=== PATIENT | female | born 1985 | race Caucasian/White ===

== ENCOUNTER → 2016-08-20 | Outpatient (CLI) | payer MEDICARE, OTHER | END | disposition home or self-care (01) | LOC: MW.CHOBGYN 15:50 | PROVIDERS: ATTEND Obstetrics & Gynecology | DX: Z34.90 Encounter for supervision of normal pregnancy, unspecified, unspecified trimester (principal) | CPT/HCPCS: 81003 ==

== ENCOUNTER → 2016-09-21 | Outpatient (CLI) | payer MEDICARE, OTHER | LOC: MW.CHOBGYN 13:07 | PROVIDERS: ATTEND Obstetrics & Gynecology | DX: Z34.90 Encounter for supervision of normal pregnancy, unspecified, unspecified trimester (principal) | CPT/HCPCS: 81003; 87081 ==

== ENCOUNTER 2016-09-29 19:49 | Inpatient (IN) | payer OTHER ==
[2016-09-30] MEDS ORDERED: Misoprostol 200 MCG Tab PO PRN (00:56)
[2016-09-30] MEDS ORDERED: Sodium Chloride 0.9% 2.5 ML Syringe FLUSH PRN (00:56)
[2016-09-30] MEDS ORDERED: Sodium Chloride 0.9% 10 ML Syringe FLUSH PRN (00:56)
[2016-09-30] MEDS ORDERED: Methylergonovine 0.2 MG/1 ML Amp IM PRN (00:56)
[2016-09-30] MEDS ORDERED: Water For Irrigation,Sterile 1,000 ML Container IRR PRN (00:56)
[2016-09-30] MEDS ORDERED: Nalbuphine 10 MG/1 ML Vial IVPUSH PRN (00:56)
[2016-09-30] MEDS ORDERED: Carboprost Tromethamine 250 MCG/1 ML Amp IM PRN (00:56)
[2016-09-30] MEDS ORDERED: Butorphanol 1 MG/ML SDV IVPUSH PRN (00:56)
[2016-09-30] MEDS ORDERED: Lidocaine 1% 50 ML MDV INJECT PRN (00:56)
[2016-09-30] MEDS ORDERED: Ampicillin 2 GM in Sodium Chloride 0.9% 100 ML IV ONE (01:00)
[2016-09-30] MEDS ORDERED: Oxytocin/Lactated Ringers 30 UNIT/500 ML BAG IV SCH (01:00)
[2016-09-30] MEDS: Lactated Ringers 1,000 ML IV SCH ×3 (01:16→02:42)
--- NOTE | 2016-09-30 01:23 | PCM.LDHP ---
L&D History of Present Illness - General Date of Service: 09/30/16 Admit Problem/Dx: Patient Status Order with Admit Dx/Problem 09/29/16 20:27 Patient Status [ADT] Routine 09/30/16 00:57 Patient Status [ADT] Routine Admission Diagnosis/Problem Admission Diagnosis/Problem 09/30/16 01:18 31 yo EDC 10/21/2016 36 6/7 wks in active labor, A neg, RI, GBS pos. Source of Information: Patient History Limitations: Reports: No limitations - History of Present Illness Timing/Duration: Reports: minutes: (q4min) Location, : Reports: Abdomen Quality: Reports: Ache, Sharp Severity: severe Improves with: Reports: None Worsens with: Reports: None Associated Symptoms: Reports: N - Related Data Allergies/Adverse Reactions: Allergies Allergy/AdvReac Type Severity Reaction Status Date / Time No Known Allergies Allergy Verified 11/04/13 11:30 Social & Family History - Tobacco Use Smoking Status *Q: Never Smoker Second Hand Smoke Exposure: No - Recreational Drug Use Recreational Drug Use: No H&P Review of Systems - Review of Systems: Review Of Systems: See Below General: Reports: no symptoms HEENT: Reports: no symptoms Pulmonary: Reports: No Symptoms Cardiovascular: Reports: no symptoms Gastrointestinal: Reports: No symptoms Genitourinary: Reports: no symptoms Musculoskeletal: Reports: no symptoms Skin: Reports: no symptoms Psychiatric: Reports: no symptoms Neurological: Reports: No Symptoms Hematologic/Lymphatic: Reports: no symptoms Immunologic: Reports: no symptoms L&D Exam - Exam Exam: See Below - Vital Signs Weight: 64.864 kg - OB Specific Contraction Intensity: Moderate to Strong movement: active heart tones: present heart tones per min: 140 Heart Rate (FHR) Variability: Moderate (6-25 bmp) Presentation: Vertex Estimated Weight: 3400 - Cooper Score Cooper Score Cervix Position: Anterior Cooper Score Consistency: Soft Cooper Score Effacement: >80% Cooper Score Dilation: > 5 cm Cooper Score Infant's Station: -2 Cooper Score Total: 11 - Patient Data Lab Results last 24 hrs: Laboratory Results - last 24 hr 09/30/16 Range/Units 00:45 WBC 12.49 H (4.0-11.0) K/uL RBC 4.09 L (4.30-5.90) M/uL Hgb 12.8 (12.0-16.0) g/dL Hct 36.5 (36.0-46.0) % MCV 89.2 (80.0-98.0) fL MCH 31.3 (27.0-32.0) pg MCHC 35.1 (31.0-37.0) g/dL RDW Std Deviation 40.9 (28.0-62.0) fl RDW Coeff of Rubio 13 (11.0-15.0) % Plt Count 225 (150-400) K/uL MPV 9.20 (7.40-12.00) fL Result Diagrams: 09/30/16 00:45 - Problem List (1) Supervision of normal IUP (intrauterine ) in multigravida SNOMED Code(s): 195932232, 365587558, 878786274 ICD Code: Z34.90 - ENCNTR FOR SUPRVSN OF NORMAL , UNSP, UNSP TRIMESTER Status: Acute Priority: High Current Visit: Yes Qualifiers: Trimester: third trimester Qualified Code(s): Z34.93 - Encounter for supervision of normal , unspecified, third trimester Problem List Initiated/Reviewed/Updated: Yes Orders Last 24hrs: Active Orders 24 hr Category Date Time Status Patient Status [ADT] Routine ADT 09/29/16 20:27 Active Patient Status [ADT] Routine ADT 09/30/16 00:57 Active Heart Tones [RC] CONTINUOUS Care 09/30/16 00:57 Active Non Stress Test [RC] PER UNIT ROUTINE Care 09/29/16 20:27 Active Non Stress Test [RC] PER UNIT ROUTINE Care 09/30/16 00:57 Active May Shower [RC] ASDIRECTED Care 09/30/16 00:57 Active Notify Provider [RC] PRN Care 09/30/16 00:57 Active Up ad Bharti [RC] ASDIRECTED Care 09/29/16 20:27 Active Up ad Bharti [RC] ASDIRECTED Care 09/30/16 00:57 Active Vaginal Exam [RC] Click To Edit Care 09/29/16 20:27 Active Vaginal Exam [RC] PRN Care 09/30/16 00:57 Active Vital Signs [RC] PER UNIT ROUTINE Care 09/29/16 20:27 Active Vital Signs [RC] PER UNIT ROUTINE Care 09/30/16 00:57 Active TYPE AND SCREEN [BBK] Routine Lab 09/30/16 00:45 Received Ampicillin 1 gm Med 09/30/16 05:00 Active Sodium Chloride 0.9% [Normal Saline] 50 ml IV Q4H Ampicillin 2 gm Med 09/30/16 01:00 Active Sodium Chloride 0.9% [Normal Saline] 100 ml IV ONETIME Butorphanol [Stadol] Med 09/30/16 00:56 Active 1 mg IVPUSH Q1H PRN Carboprost Tromethamine [Hemabate DS] Med 09/30/16 00:56 Active 250 mcg IM ASDIRECTED PRN Lactated Ringers [Ringers, Lactated] 1,000 ml Med 09/30/16 01:00 Active IV ASDIRECTED Lidocaine 1% [Xylocaine 1%] Med 09/30/16 00:56 Active 50 ml INJECT .ONCE PRN Methylergonovine [Methergine] Med 09/30/16 00:56 Active 0.2 mg IM ASDIRECTED PRN Misoprostol [Cytotec] Med 09/30/16 00:56 Active 200 mcg PO .ONCE PRN Nalbuphine [Nubain] Med 09/30/16 00:56 Active 10 mg IVPUSH Q1H PRN Oxytocin/Lactated Ringers [Pitocin in LR 30 Units/500 Med 09/30/16 01:00 Active ML] 30 unit in 500 ml IV ASDIRECTED Sodium Chloride 0.9% [Saline Flush] Med 09/30/16 00:56 Active 10 ml FLUSH ASDIRECTED PRN Sodium Chloride 0.9% [Saline Flush] Med 09/30/16 00:56 Active 2.5 ml FLUSH ASDIRECTED PRN Water For Irrigation,Sterile [Sterile Water for Med 09/30/16 00:56 Active Irrigation] 1,000 ml IRR ASDIRECTED PRN Scalp Electrode [WOMSER] Per Unit Routine Oth 09/30/16 00:57 Ordered Peripheral IV Insertion Adult [OM.PC] Routine Oth 09/30/16 00:57 Ordered Resuscitation Status Routine Resus Stat 09/30/16 00:56 Ordered Medication Orders Butorphanol Tartrate (Stadol) 1 mg IVPUSH Q1H PRN PRN Reason: Pain Carboprost Tromethamine (Hemabate Ds) 250 mcg IM ASDIRECTED PRN PRN Reason: Post Hemorrhage Ampicillin Sodium 2 gm/ Sodium (Chloride) 100 mls @ 200 mls/hr IV ONETIME ONE Stop: 09/30/16 01:29 Last Admin: 09/30/16 01:17 Dose: 200 mls/hr Lactated Ringer's (Ringers, Lactated) 1,000 mls @ 150 mls/hr IV ASDIRECTED SAGAR Last Admin: 09/30/16 01:16 Dose: 150 mls/hr Oxytocin/Lactated Ringer's (Pitocin In Lr 30 Units/500 Ml) 30 unit in 500 mls @ 999 mls/hr IV ASDIRECTED SAGAR PRN Reason: 999 MUNITS/MIN Stop: 09/30/16 01:31 Ampicillin Sodium 1 gm/ Sodium (Chloride) 50 mls @ 100 mls/hr IV Q4H SAGAR Lidocaine HCl (Xylocaine 1%) 50 ml INJECT .ONCE PRN PRN Reason: Laceration repair Methylergonovine Maleate (Methergine) 0.2 mg IM ASDIRECTED PRN PRN Reason: Post Hemorrhage Misoprostol (Cytotec) 200 mcg PO .ONCE PRN PRN Reason: Post Hemorrhage Nalbuphine HCl (Nubain) 10 mg IVPUSH Q1H PRN PRN Reason: Pain (severe 7-10) Stop: 09/30/16 02:57 Sodium Chloride (Saline Flush) 10 ml FLUSH ASDIRECTED PRN PRN Reason: Keep Vein Open Sodium Chloride (Saline Flush) 2.5 ml FLUSH ASDIRECTED PRN PRN Reason: Keep Vein Open Sterile Water (Sterile Water For Irrigation) 1,000 ml IRR ASDIRECTED PRN PRN Reason: delivery Assessment/Plan Comment:: A: 31 yo EDC 10/21/2016 36 6/7 wks in active labor, A neg, RI, GBS pos. P: Admit to L&D for active labor, epidural prn, antibiotics for GBS pos. Anticipate . Dr Alcantar notified of pt status
--- NOTE | 2016-09-30 01:37 | PCM.PREANE ---
Preanesthetic Assessment - Anesthesia/Transfusion/Family Hx Anesthesia History: Prior Anesthesia Without Reaction - Review of Systems General: No Symptoms Pulmonary: No Symptoms Cardiovascular: No Symptoms Gastrointestinal: No symptoms Neurological: No Symptoms Other: Reports: None - Physical Assessment Height: 5 ft 5 in Weight: 64.864 kg ASA Class: 2 Mental Status: Alert & Oriented x3 Airway Class: Mallampati = 2 Dentition: Reports: Normal Dentition ROM/Head Extension: Full Lungs: Clear to auscultation, Normal respiratory effort Cardiovascular: Regular Rate, Regular Rhythm - Lab Values: Laboratory Last Values WBC 12.49 K/uL (4.0-11.0) H 09/30/16 00:45 RBC 4.09 M/uL (4.30-5.90) L 09/30/16 00:45 Hgb 12.8 g/dL (12.0-16.0) 09/30/16 00:45 Hct 36.5 % (36.0-46.0) 09/30/16 00:45 MCV 89.2 fL (80.0-98.0) 09/30/16 00:45 MCH 31.3 pg (27.0-32.0) 09/30/16 00:45 MCHC 35.1 g/dL (31.0-37.0) 09/30/16 00:45 RDW Std Deviation 40.9 fl (28.0-62.0) 09/30/16 00:45 RDW Coeff of Rubio 13 % (11.0-15.0) 09/30/16 00:45 Plt Count 225 K/uL (150-400) 09/30/16 00:45 MPV 9.20 fL (7.40-12.00) 09/30/16 00:45 - Allergies Allergies/Adverse Reactions: Allergies Allergy/AdvReac Type Severity Reaction Status Date / Time No Known Allergies Allergy Verified 11/04/13 11:30 - Acknowledgements Anesthesia Type Planned: Epidural Pt an Appropriate Candidate for the Planned Anesthesia: Yes Alternatives and Risks of Anesthesia Discussed w Pt/Guardian: Yes Pt/Guardian Understands and Agrees with Anesthesia Plan: Yes PreAnesthesia Questionnaire HEENT History: Reports: None Cardiovascular History: Reports: None Respiratory History: Reports: None Gastrointestinal History: Reports: GERD Genitourinary History: Reports: UTI, recurrent [employer]TING [employer]ATOR History: Reports: : 2 Para: 1 LMP (Approximate): Musculoskeletal History: Reports: None Neurological History: Reports: None Psychiatric History: Reports: Anxiety, Depression Endocrine/Metabolic History: Reports: None Hematologic History: Reports: None Immunologic History: Reports: None Oncologic (Cancer) History: Reports: None Dermatologic History: Reports: None - Infectious Disease History Infectious Disease History: Reports: None - SUBSTANCE USE Smoking Status *Q: Never Smoker Second Hand Smoke Exposure: No Recreational Drug Use History: No - CURRENT (IN HOUSE) MEDS Current Meds: Current Medications Butorphanol Tartrate (Stadol) 1 mg IVPUSH Q1H PRN PRN Reason: Pain Carboprost Tromethamine (Hemabate Ds) 250 mcg IM ASDIRECTED PRN PRN Reason: Post Hemorrhage Lactated Ringer's (Ringers, Lactated) 1,000 mls @ 150 mls/hr IV ASDIRECTED SAGAR Last Infusion: 09/30/16 01:27 Dose: 999 mls/hr Ampicillin Sodium 1 gm/ Sodium (Chloride) 50 mls @ 100 mls/hr IV Q4H SAGAR Lidocaine HCl (Xylocaine 1%) 50 ml INJECT .ONCE PRN PRN Reason: Laceration repair Methylergonovine Maleate (Methergine) 0.2 mg IM ASDIRECTED PRN PRN Reason: Post Hemorrhage Misoprostol (Cytotec) 200 mcg PO .ONCE PRN PRN Reason: Post Hemorrhage Nalbuphine HCl (Nubain) 10 mg IVPUSH Q1H PRN PRN Reason: Pain (severe 7-10) Stop: 09/30/16 02:57 Sodium Chloride (Saline Flush) 10 ml FLUSH ASDIRECTED PRN PRN Reason: Keep Vein Open Sodium Chloride (Saline Flush) 2.5 ml FLUSH ASDIRECTED PRN PRN Reason: Keep Vein Open Sterile Water (Sterile Water For Irrigation) 1,000 ml IRR ASDIRECTED PRN PRN Reason: delivery Discontinued Medications Ampicillin Sodium 2 gm/ Sodium (Chloride) 100 mls @ 200 mls/hr IV ONETIME ONE Stop: 09/30/16 01:29 Last Admin: 09/30/16 01:17 Dose: 200 mls/hr Oxytocin/Lactated Ringer's (Pitocin In Lr 30 Units/500 Ml) 30 unit in 500 mls @ 999 mls/hr IV ASDIRECTED SAGAR PRN Reason: 999 MUNITS/MIN Stop: 09/30/16 01:31
[2016-09-30] MEDS ORDERED: fentaNYL 100 MCG/2 ML SDV ONE (01:52)
[2016-09-30] MEDS ORDERED: Ropivacaine HCl/PF 100 ML ONE (01:52)
[2016-09-30] MEDS ORDERED: Oxytocin/Lactated Ringers 30 UNIT/500 ML BAG ONE (04:29)
[2016-09-30] MEDS ORDERED: Ampicillin 1 GM in Sodium Chloride 0.9% 50 ML IV SCH (05:00)
[2016-09-30] MEDS ORDERED: Lanolin 100% Cream 7 GM Tube TOP PRN (05:45)
[2016-09-30] MEDS ORDERED: Bisacodyl 10 MG Supp RECTAL PRN (05:45)
[2016-09-30] MEDS ORDERED: oxyCODONE 5 MG Tab PO PRN (05:45)
[2016-09-30] MEDS ORDERED: Ibuprofen 400 MG Tab PO PRN (05:45)
[2016-09-30] MEDS ORDERED: Ibuprofen 800 MG Tab PO PRN (05:45)
[2016-09-30] MEDS ORDERED: Benzocaine/Menthol 20%-0.5% Spray 78 GM Cannister TOP PRN (05:45)
[2016-09-30] MEDS ORDERED: Witch Hazel Medicated Pads 40/Jar TOP PRN (05:45)
[2016-09-30] MEDS ORDERED: Acetaminophen 500 MG Tab PO PRN ×2 (05:45)
--- NOTE | 2016-09-30 06:01 | PCM.DEL ---
L & D Note - General Info Date of Service: 09/30/16 Mother's Due Date: 10/21/16 - Delivery Note Labor: spontaneous Delivery Outcome: Livebirth Infant Delivery Method: Spontaneous Vaginal Delivery Infant Delivery Mode: Spontaneous Presentation: Vertex Nuchal cord: none Anesthesia Type: Epidural Anesthetic: lidocaine (xylocaine) 1% plain Local anesthetic volume: 1cc Amniotic Fluid Description: Clear Episiotomy Type: None Laceration: 2nd degree Suture size: 3-0 Placenta: intact, spontaneous Cord: 3 vessels Estimated blood loss: 150 Resuscitation needed: No [place]: warmed Score 1 min: 9 Score 5 min: 9 Second Stage Interventions: Reports: Laboring Down Delivery Comments (Free Text/Narrative):: of viable female over intact perineum. Head delivered with effective pushing, shoulders and body followed easily. to mothers abdomen with RN at for evaluation. Delayed cord clamping. Pitocin to IVF. Cord clamped and cut by FOB. Cord blood collected. Placenta delivered grossly intact. Inspection noted 2nd degree lac Lidocaine 1% used, and then lac was repaired with a 3-0 idalia in the usual manor. Bimanual WNL. EBL 150cc, APGARS 9/9, Wt: pending bonding. Mother and baby left in stable condition for recovery. - General Info Date of Service: 09/30/16 Admission Dx/Problem (Free Text): Patient Status Order with Admit Dx/Problem 09/29/16 20:27 Patient Status [ADT] Routine 09/30/16 00:57 Patient Status [ADT] Routine Admission Diagnosis/Problem Admission Diagnosis/Problem 09/30/16 01:18 31 yo EDC 10/21/2016 36 6/7 wks in active labor, A neg, RI, GBS pos. Functional Status: Reports: pain controlled - Review of Systems General: Reports: No Symptoms HEENT: Reports: no symptoms Pulmonary: Reports: no symptoms Cardiovascular: Reports: No Symptoms Gastrointestinal: Reports: No symptoms Genitourinary: Reports: no symptoms Musculoskeletal: Reports: no symptoms Skin: Reports: no symptoms Neurological: Reports: No Symptoms Psychiatric: Reports: no symptoms - Patient Data Weight - most recent: 64.864 kg Lab Results last 24 hrs: Laboratory Results - last 24 hr 09/30/16 09/30/16 Range/Units 00:45 00:45 WBC 12.49 H (4.0-11.0) K/uL RBC 4.09 L (4.30-5.90) M/uL Hgb 12.8 (12.0-16.0) g/dL Hct 36.5 (36.0-46.0) % MCV 89.2 (80.0-98.0) fL MCH 31.3 (27.0-32.0) pg MCHC 35.1 (31.0-37.0) g/dL RDW Std Deviation 40.9 (28.0-62.0) fl RDW Coeff of Rubio 13 (11.0-15.0) % Plt Count 225 (150-400) K/uL MPV 9.20 (7.40-12.00) fL Blood Type A NEGATIVE Antibody Screen NEGATIVE Med Orders - Current: Current Medications Acetaminophen (Tylenol Extra Strength) 500 mg PO Q4H PRN PRN Reason: Pain Acetaminophen (Tylenol Extra Strength) 1,000 mg PO Q4H PRN PRN Reason: Pain Benzocaine/Menthol (Dermoplast Pain Relief 20%-0.5% [place]) 78 gm TOP ASDIRECTED PRN PRN Reason: Perineal Comfort Measure Bisacodyl (Dulcolax) 10 mg RECTAL .ONCE PRN PRN Reason: Constipation Docusate Sodium (Colace) 100 mg PO BID PRN PRN Reason: Constipation Emollient Ointment (Lansinoh Hpa) 0 gm TOP ASDIRECTED PRN PRN Reason: Sore Nipples Ibuprofen (Motrin) 400 mg PO Q4H PRN PRN Reason: Pain Ibuprofen (Motrin) 800 mg PO Q6H PRN PRN Reason: Pain Oxycodone HCl (Oxycodone) 5 mg PO Q2H PRN PRN Reason: Pain Witch Kanchan (Tucks) 1 pad TOP ASDIRECTED PRN PRN Reason: comfort care Discontinued Medications Butorphanol Tartrate (Stadol) 1 mg IVPUSH Q1H PRN PRN Reason: Pain Carboprost Tromethamine (Hemabate Ds) 250 mcg IM ASDIRECTED PRN PRN Reason: Post Hemorrhage Fentanyl (Sublimaze) Confirm Administered Dose 100 mcg .ROUTE .STK-MED ONE Stop: 09/30/16 01:53 Ampicillin Sodium 2 gm/ Sodium (Chloride) 100 mls @ 200 mls/hr IV ONETIME ONE Stop: 09/30/16 01:29 Last Admin: 09/30/16 01:17 Dose: 200 mls/hr Lactated Ringer's (Ringers, Lactated) 1,000 mls @ 150 mls/hr IV ASDIRECTED [facility] Last Admin: 09/30/16 02:42 Dose: 150 mls/hr Oxytocin/Lactated Ringer's (Pitocin In Lr 30 Units/500 Ml) 30 unit in 500 mls @ 999 mls/hr IV ASDIRECTED [facility] PRN Reason: 999 MUNITS/MIN Stop: 09/30/16 01:31 Last Admin: 09/30/16 05:22 Dose: 999 munits/min, 999 mls/hr Ampicillin Sodium 1 gm/ Sodium (Chloride) 50 mls @ 100 mls/hr IV Q4H [facility] Ropivacaine (Naropin 0.2%) Confirm Administered Dose 100 mls @ as directed .ROUTE .STK-MED ONE Stop: 09/30/16 01:53 Oxytocin/Lactated Ringer's (Pitocin In Lr 30 Units/500 Ml) Confirm Administered Dose 30 unit in 500 mls @ as directed .ROUTE .STK-MED ONE Stop: 09/30/16 04:30 Lidocaine HCl (Xylocaine 1%) 50 ml INJECT .ONCE PRN PRN Reason: Laceration repair Last Admin: 09/30/16 05:36 Dose: 50 ml Methylergonovine Maleate (Methergine) 0.2 mg IM ASDIRECTED PRN PRN Reason: Post Hemorrhage Misoprostol (Cytotec) 200 mcg PO .ONCE PRN PRN Reason: Post Hemorrhage Nalbuphine HCl (Nubain) 10 mg IVPUSH Q1H PRN PRN Reason: Pain (severe 7-10) Stop: 09/30/16 02:57 Sodium Chloride (Saline Flush) 10 ml FLUSH ASDIRECTED PRN PRN Reason: Keep Vein Open Last Admin: 09/30/16 05:37 Dose: 10 ml Sodium Chloride (Saline Flush) 2.5 ml FLUSH ASDIRECTED PRN PRN Reason: Keep Vein Open Sterile Water (Sterile Water For Irrigation) 1,000 ml IRR ASDIRECTED PRN PRN Reason: delivery - Exam General: alert, oriented, cooperative, no acute distress Lungs: Normal respiratory effort Abdomen: soft, no tenderness, no distension (Female) Exam: Normal bimanual exam, Vaginal bleeding Back Exam: full range of motion Extremities: no edema Skin: warm, dry, intact Wound/Incisions: healing well Neurological: no new focal deficit Psy/Mental Status: alert, normal affect, normal mood - Problem List & Annotations (1) Supervision of normal IUP (intrauterine ) in multigravida SNOMED Code(s): 359606103, 752479835, 798605397 Code(s): Z34.90 - ENCNTR FOR SUPRVSN OF NORMAL , UNSP, UNSP TRIMESTER Status: Acute Priority: High Current Visit: Yes Qualifiers: Trimester: third trimester Qualified Code(s): Z34.93 - Encounter for supervision of normal , unspecified, third trimester (2) (normal spontaneous vaginal delivery) SNOMED Code(s): 43749381 Code(s): O80 - ENCOUNTER FOR FULL-TERM UNCOMPLICATED DELIVERY Status: Acute Priority: Medium Current Visit: Yes - Problem List Review Problem List Initiated/Reviewed/Updated: Yes - My Orders Last 24 Hours: My Active Orders 09/30/16 05:45 May Shower [RC] ASDIRECTED Up ad Bharti [RC] ASDIRECTED Vital Signs [RC] PER UNIT ROUTINE Acetaminophen [Tylenol Extra Strength] 1,000 mg PO Q4H PRN Acetaminophen [Tylenol Extra Strength] 500 mg PO Q4H PRN Benzocaine/Menthol [Dermoplast Pain Relief 20%-0.5% [place]] 78 gm TOP ASDIRECTED PRN Bisacodyl [Dulcolax] 10 mg RECTAL .ONCE PRN Docusate Sodium [Colace] 100 mg PO BID PRN Ibuprofen [Motrin] 400 mg PO Q4H PRN Ibuprofen [Motrin] 800 mg PO Q6H PRN Lanolin [Lansinoh HPA] See Dose Instructions TOP ASDIRECTED PRN Witch Kanchan [Tucks] 1 pad TOP ASDIRECTED PRN oxyCODONE 5 mg PO Q2H PRN Assess Lochia [WOMSER] Per Unit Routine Assess Uterine Involution [WOMSER] Per Unit Routine Peripheral IV Discontinue [OM.PC] Routine Resuscitation Status Routine 09/30/16 05:46 Patient Status [ADT] Routine 09/30/16 Breakfast Regular Diet [DIET] - Assessment Assessment:: A: of viable female, 2nd degree lac with repair. EBL 150cc, APGARS /9. Wt : pending P: Routine post plan of care. - Plan Plan:: A: 31 yo EDC 10/21/2016 36 6/7 wks in active labor, A neg, RI, GBS pos. P: Admit to L&D for active labor, epidural prn, antibiotics for GBS pos. Anticipate . Dr Alcantar notified of pt status
--- NOTE | 2016-09-30 09:10 | PCM48HPAN ---
Post Anesthesia Note - EVALUATION WITHIN 48HRS OF ANESTHETIC Vital Signs in Normal Range: Yes Patient Participated in Evaluation: Yes Respiratory Function Stable: Yes Airway Patent: Yes Cardiovascular Function Stable: Yes Hydration Status Stable: Yes Pain Control Satisfactory: Yes Nausea and Vomiting Control Satisfactory: Yes Mental Status Recovered: Yes
[2016-09-30] MEDS: Docusate Sodium 100 MG Cap PO PRN ×2 (12:09→21:33)
[2016-09-30] MEDS ORDERED: Rho(D) Immune Globulin 300 MCG/2 ML Syringe IM ONE (18:21)
[2016-10-01 08:40] VITALS: BP 118/77
--- NOTE | 2016-10-01 09:46 | PCM.DCSUM1 ---
Discharge Summary - Hospital Course Free Text/Narrative:: Discharge home with . Follow up 6 weeks or sooner if needed - Discharge Data Discharge Date: 10/01/16 Discharge Disposition: Home, Self-Care 01 Condition: Good - Discharge Diagnosis/Problem(s) (1) Supervision of normal IUP (intrauterine ) in multigravida SNOMED Code(s): 798446363, 724200797, 993678235 ICD Code: Z34.90 - ENCNTR FOR SUPRVSN OF NORMAL , UNSP, UNSP TRIMESTER Status: Acute Priority: High Current Visit: Yes Qualifiers: Trimester: third trimester Qualified Code(s): Z34.93 - Encounter for supervision of normal , unspecified, third trimester (2) (normal spontaneous vaginal delivery) SNOMED Code(s): 85831659 ICD Code: O80 - ENCOUNTER FOR FULL-TERM UNCOMPLICATED DELIVERY Status: Acute Priority: Medium Current Visit: Yes - Patient Instructions Diet: Usual Diet as Tolerated Activity: As Tolerated, Rest and Relax Today Driving: Do Not Drive Showering/Bathing: May Shower Notify Provider of: Fever, Increased Pain, Swelling and Redness, Nausea and/or Vomiting - Discharge Plan Referrals: [facility] [Outside] Fredy Alcantar MD [Physician] - 11/12/16 9:30 am - General Info Date of Service: 10/01/16 Admission Dx/Problem (Free Text: Patient Status Order with Admit Dx/Problem 09/29/16 20:27 Patient Status [ADT] Routine 09/30/16 00:57 Patient Status [ADT] Routine Admission Diagnosis/Problem Admission Diagnosis/Problem 09/30/16 01:18 31 yo EDC 10/21/2016 36 6/7 wks in active labor, A neg, RI, GBS pos. Functional Status: Reports: pain controlled, tolerating diet, ambulating, urinating - Review of Systems General: Reports: No Symptoms HEENT: Reports: no symptoms Pulmonary: Reports: no symptoms Cardiovascular: Reports: No Symptoms Gastrointestinal: Reports: No symptoms Genitourinary: Reports: no symptoms Musculoskeletal: Reports: no symptoms Skin: Reports: no symptoms Neurological: Reports: No Symptoms Psychiatric: Reports: no symptoms - Patient Data Vitals - Most Recent: Last Vital Signs Temp 36.4 C 10/01/16 08:38 Pulse 75 10/01/16 08:38 Resp 18 10/01/16 05:38 BP 118/77 10/01/16 08:38 Pulse Ox 98 10/01/16 08:38 Weight - Most Recent: 64.864 kg I&O - Last 24 hours: Intake & Output 09/30/16 10/01/16 10/01/16 22:59 06:59 14:59 Intake Total 2 Balance 2 Lab Results - Last 24 hrs: Laboratory Results - last 24 hr 09/30/16 Range/Units 06:50 Screen NEGATIVE RhIG Candidate? YES Rhogam Indicated Cancelled Med Orders - Current: Current Medications Acetaminophen (Tylenol Extra Strength) 500 mg PO Q4H PRN PRN Reason: Pain Acetaminophen (Tylenol Extra Strength) 1,000 mg PO Q4H PRN PRN Reason: Pain Last Admin: 09/30/16 12:01 Dose: 1,000 mg Benzocaine/Menthol (Dermoplast Pain Relief 20%-0.5% Rover) 78 gm TOP ASDIRECTED PRN PRN Reason: Perineal Comfort Measure Last Admin: 09/30/16 08:45 Dose: 1 can Bisacodyl (Dulcolax) 10 mg RECTAL .ONCE PRN PRN Reason: Constipation Docusate Sodium (Colace) 100 mg PO BID PRN PRN Reason: Constipation Last Admin: 09/30/16 21:33 Dose: 100 mg Emollient Ointment (Lansinoh Hpa) 0 gm TOP ASDIRECTED PRN PRN Reason: Sore Nipples Last Admin: 09/30/16 08:44 Dose: 1 tube Ibuprofen (Motrin) 400 mg PO Q4H PRN PRN Reason: Pain Ibuprofen (Motrin) 800 mg PO Q6H PRN PRN Reason: Pain Last Admin: 09/30/16 08:44 Dose: 800 mg Oxycodone HCl (Oxycodone) 5 mg PO Q2H PRN PRN Reason: Pain Witch Kanchan (Tucks) 1 pad TOP ASDIRECTED PRN PRN Reason: comfort care Last Admin: 09/30/16 08:44 Dose: 1 tub Discontinued Medications Butorphanol Tartrate (Stadol) 1 mg IVPUSH Q1H PRN PRN Reason: Pain Carboprost Tromethamine (Hemabate Ds) 250 mcg IM ASDIRECTED PRN PRN Reason: Post Hemorrhage Fentanyl (Sublimaze) Confirm Administered Dose 100 mcg .ROUTE .STK-MED ONE Stop: 09/30/16 01:53 Ampicillin Sodium 2 gm/ Sodium (Chloride) 100 mls @ 200 mls/hr IV ONETIME ONE Stop: 09/30/16 01:29 Last Admin: 09/30/16 01:17 Dose: 200 mls/hr Lactated Ringer's (Ringers, Lactated) 1,000 mls @ 150 mls/hr IV ASDIRECTED SAGAR Last Admin: 09/30/16 02:42 Dose: 150 mls/hr Oxytocin/Lactated Ringer's (Pitocin In Lr 30 Units/500 Ml) 30 unit in 500 mls @ 999 mls/hr IV ASDIRECTED SAGAR PRN Reason: 999 MUNITS/MIN Stop: 09/30/16 01:31 Last Admin: 09/30/16 05:22 Dose: 999 munits/min, 999 mls/hr Ampicillin Sodium 1 gm/ Sodium (Chloride) 50 mls @ 100 mls/hr IV Q4H [facility] Ropivacaine (Naropin 0.2%) Confirm Administered Dose 100 mls @ as directed .ROUTE .STK-MED ONE Stop: 09/30/16 01:53 Oxytocin/Lactated Ringer's (Pitocin In Lr 30 Units/500 Ml) Confirm Administered Dose 30 unit in 500 mls @ as directed .ROUTE .STK-MED ONE Stop: 09/30/16 04:30 Lidocaine HCl (Xylocaine 1%) 50 ml INJECT .ONCE PRN PRN Reason: Laceration repair Last Admin: 09/30/16 05:36 Dose: 50 ml Methylergonovine Maleate (Methergine) 0.2 mg IM ASDIRECTED PRN PRN Reason: Post Hemorrhage Misoprostol (Cytotec) 200 mcg PO .ONCE PRN PRN Reason: Post Hemorrhage Nalbuphine HCl (Nubain) 10 mg IVPUSH Q1H PRN PRN Reason: Pain (severe 7-10) Stop: 09/30/16 02:57 Rho Immune Globulin (Rhophylac) 300 mcg IM ONETIME ONE Stop: 09/30/16 18:22 Sodium Chloride (Saline Flush) 10 ml FLUSH ASDIRECTED PRN PRN Reason: Keep Vein Open Last Admin: 09/30/16 05:37 Dose: 10 ml Sodium Chloride (Saline Flush) 2.5 ml FLUSH ASDIRECTED PRN PRN Reason: Keep Vein Open Sterile Water (Sterile Water For Irrigation) 1,000 ml IRR ASDIRECTED PRN PRN Reason: delivery - Exam General: Reports: alert, oriented, cooperative, no acute distress Lungs: Reports: Normal respiratory effort Abdomen: Reports: soft, no tenderness, no distension Rectal (Female) Exam: Deferred Back Exam: Reports: normal inspection Extremities: Reports: no edema, normal pulses Skin: Reports: warm, dry, intact Wound/Incisions: Reports: healing well Neurological: Reports: no new focal deficit Psy/Mental Status: Reports: alert, normal affect, normal mood *Q Meaningful Use (DIS) - VTE *Q VTE Criteria *Q: - Stroke *Q Stroke Criteria *Q: - AMI *Q AMI Criteria *Q:
== END 2016-10-01 11:15 | disposition home or self-care (01) | DRG 775 ==
LOC: MW.OBCHECK 19:49 → MW.OB 19:51 → MW.OBCHECK 19:59 → OBSVTOIN 09-30 05:46 → MW.OB 09-30 09:07
PROVIDERS: ADMIT Obstetrics & Gynecology; ATTEND Obstetrics & Gynecology
PROC: 10E0XZZ Delivery of Products of Conception, External Approach (ICD-10-PCS; principal; 2016-09-30)
PROC: 0KQM0ZZ Repair Perineum Muscle, Open Approach (ICD-10-PCS; 2016-09-30)
DX: O60.14X0 Preterm labor third trimester with preterm delivery third trimester, not applicable or unspecified (principal); O70.1 Second degree perineal laceration during delivery; Z3A.36 36 weeks gestation of pregnancy; Z37.0 Single live birth
CPT/HCPCS: 01967; 36415; 59025; 85027; 85460; 86850; 86900; 86901; A9270-GY; J0290; J2790; J2795; J3010; J7030; J7120